=== PATIENT | male | born 1965 | race Caucasian/White ===

== ENCOUNTER 2020-11-24 13:37 | Emergency (ER) | payer SELFPAY ==
[~2020-11-24] VITALS: Ht 180.3 cm; Wt 104.0 kg
[2020-11-24 14:06] VITALS: BP 149/78
[2020-11-24] MEDS ORDERED: KETOROLAC 15 MG/ML VIAL. IM ONE (14:45)
[2020-11-24] MEDS ORDERED: INDO50CA15 PO (14:56)
[2020-11-24] MEDS ORDERED: PRED-220 PO (14:56)
--- NOTE | 2020-11-24 14:57 | PHYS DOC ---
Past History Additional Past Medical Histor: Gout (MAY MCGINNIS) Past Surgical History: Knee Replacement, Other Additional Past Surgical Histo: hand, ankle (MAY MCGINNIS) Alcohol Use: None (MAY MCGINNIS) General Adult EDM: Chief Complaint: MULTIPLE COMPLAINTS HPI: HPI: Patient is a 55 year old male with history of gout who presents with right elbow and left great toe pain and swelling. Patient states his elbow began swelling 3 days ago, and his great toe just began swelling this morning. He states his pain and symptoms are very similar to gout exacerbations in the past. Patient just moved to the area yesterday from [place], and has been out of his all opurinol and indomethacin. Patient denies trauma to either joint. Patient denies fever, chills, chest pain, palpitations, shortness of breath, cough. Patient has no other complaints at this time. (MAY MCGINNIS) Review of Systems: Review of Systems: ROS negative except as mentioned in HPI. (MAY MCGINNIS) Current Medications: Current Meds: Current Medications Medications (Trade) Dose Ordered Sig/Caryn Start Time Stop Time Status Last Admin Dose Admin Ketorolac Tromethamine (Toradol 15mg Vial) 15 mg 1X ONCE 11/24/20 14:45 11/24/20 14:46 UNV (MAY MCGINNIS) Allergies: Allergies: Allergies Coded Allergies Type Severity Reaction Last Updated Verified No Known Drug Allergies 11/24/20 No (MAY MCGINNIS) Physical Exam: PE: Constitutional: Well developed, well nourished, non-toxic appearance. Patient is curled in bed on his side, visibly in pain. Cardiovascular:Heart rate regular rhythm, no murmur. Lungs & Thorax: Bilateral breath sounds clear to auscultation. Skin: Warm, dry, no rash. Extremities: Right elbow exquisitely tender to palpation with swelling, warmth and erythema surrounding, range of motion intact. Left great toe with moderate swelling, warmth and erythema surrounding, range of motion intact. Extremities otherwise no cyanosis, no clubbing, ROM intact, no edema. Neurovascular intact in extremities x4. Neurologic: Alert and oriented x3, normal motor function, normal sensory function, no focal deficits noted. (MAY MCGINNIS) Current Patient Data: Vital Signs: Vital Signs Date Time Temp Pulse Resp B/P (MAP) Pulse Ox O2 Delivery O2 Flow Rate FiO2 11/24/20 14:06 98.9 107 20 149/78 (101) 98 Room Air (MAY MCGINNIS) Heart Score: C/O Chest Pain: No (MAY MCGINNIS) Course & Med Decision Making: Course & Med Decision Making Pertinent Labs and Imaging studies reviewed. (See chart for details) Patient is afebrile and range of motion is intact in affected joints. Is not concerning for septic arthritis. Patient history and presentation is consistent with gout exacerbation. Patient does request a prescription for allopurinol, however I informed the patient that I am unable to provide that in the emergency department as it is dosed based on serum concentration. As the patient just moved to the area from [place], he needs to switch his Medicaid to the [facility]. He was provided with resources to do so so that me he may obtain a primary care physician. Patient was given prescriptions for indomethacin as well as prednisone. Patient understands and is agreeable to discharge plan. (MAY MCGINNIS) Dragon Disclaimer: Dragon Disclaimer: This electronic medical record was generated, in whole or in part, using a voice recognition dictation system. (MAY MCGINNIS) Departure Departure: Impression: Primary Impression: Gout attack Qualified Codes: M10.421 - Other secondary gout, right elbow Additional Impression: Gout of big toe Disposition: HOME / SELF CARE / HOMELESS Condition: STABLE Referrals: PCP,VANIA (PCP) Patient Instructions: Gout, [id number] Additional Instructions: You were provided with resources today in order to obtain a primary care p renetta in the [facility]. Please follow-up with them in order to refill your allopurinol prescription. Return to the emergency department if your pain worsens or does not get better. Scripts Indomethacin (INDOMETHACIN) 50 Mg Capsule 1 CAP PO TID for arthritis for 10 Days, #30 CAP 0 Refills Take 1 capsule by mouth with food 3 times a day for 10 days. Prov: MAY MCGINNIS 11/24/20 Prednisone (PREDNISONE) 10 Mg Tablet 10 MG PO UD for PREDNISONE TAPER, #30 TAB 0 Refills Take 4 tablets by mouth once a day for 3 days, then take 3 tablets by mouth once a day for 3 days, then take 2 tablet by mouth once a day for 3 days, then take 1 tablet by mouth daily x 3 days, then stop. Prov: MAY MCGINNIS 11/24/20 Attending Signature Attending Signature I have reviewed the PA/SQL ANALYST's note and plan of care. I was available for consultation as needed during the patient's visit in the emergency department. I agree with the clinical impression, plan, and disposition. (ELIZABETH HORNER DO) MAY MCGINNIS Nov 24, 2020 14:57 ELIZABETH HORNER DO Nov 24, 2020 17:55
[2020-11-24] MEDS ORDERED: predniSONE 20 MG TABLET PO ONE (15:00)
== END 2020-11-24 15:19 | disposition home or self-care (01) ==
LOC: ER 13:37
DX: M10.421 Other secondary gout, right elbow (principal); M10.472 Other secondary gout, left ankle and foot
CPT/HCPCS: 96372; 99283; J1885; J7512